=== PATIENT | male | born 1965 | race Caucasian/White ===

== ENCOUNTER 2018-02-28 11:59 | Emergency (ER) | payer OTHER ==
[2018-02-28] MEDS ORDERED: LET GEL TOPICAL 1 EA SYR TP ONE (12:21)
--- NOTE | 2018-02-28 14:15 | EDPHY ---
H & P Time Seen by Provider: 02/28/18 12:09 HPI/ROS: CHIEF COMPLAINT: Laceration right forearm History by patient HISTORY OF PRESENT ILLNESS: 52-year-old otherwise healthy man presents with laceration to his right forearm after he was cut by piece of sheet metal on his van while he was clearing something out from the bulk head. He denies other pain or injury. His last tetanus shot was 5 years ago. REVIEW OF SYSTEMS: As in HPI, and all other systems reviewed and are negative Smoking Status: Never smoked Physical Exam: General Appearance: Alert and no distress. Head: Normocephalic, atraumatic Eyes: Pupils equal and round no injection. Extraocular movements are intact. Musculoskeletal: Neck is supple and nontender. Extremities: Right dorsal, extensor surface of the forearm with 5 cm superficial laceration to fat on the dorsum, full range of motion of all fingers and wrist against resistance to flexion and extension at all joints distal to the laceration, radial pulse 2 +and equal the left, distal cap refill intact, distal sensation intact. Skin: No rashes or lesions except as described above. Constitutional: Initial Vital Signs Temperature (C) 36.7 C 02/28/18 12:08 Heart Rate 100 02/28/18 12:08 Respiratory Rate 18 02/28/18 12:08 Blood Pressure 166/107 H 02/28/18 12:08 O2 Sat (%) 100 02/28/18 12:08 O2 Delivery Mode Room Air Allergies/Adverse Reactions: No Known Allergies Allergy (Verified 02/28/18 12:17) Home Medications: Medication Instructions Recorded NK [No Known Home Meds] 02/28/18 MDM/Departure - [facility] Procedures: Procedure: Laceration repair. Verbal consent was obtained from the patient. The 5 cm laceration on the right dorsal forearm was anesthetized in the usual fashion with 1% buffered lidocaine with epinephrine. The wound was irrigated, draped and explored to its base with a gloved finger. Wound went to fat but no deeper. There were no deep structures involved. No tendon injury was identified. The wound was repaired with 12 x 5 Ethilon interrupted sutures without complication. The wound repair was uncomplicated. The procedure was performed by myself. Medications Given: Discontinued Medications Tetracaine/Epinephrine/Lidocaine (Let Gel Topical) 1 ea TP EDNOW ONE Stop: 02/28/18 12:22 Last Admin: 02/28/18 12:29 Dose: Not Given - Depart Disposition: Home, Routine, Self-Care Clinical Impression: Laceration Condition: Good Instructions: Care For Your Stitches (DC), Laceration (DC) Additional Instructions: You were seen by Dr. Emerita Eldridge today. Keep your dressing on for the next 24 hr. After that you may remove it and wash the wound regularly with soap and water, cover it with ointment such as Aquaphor and a bandage until the sutures come out. Do not submerge the wound such as in a swimming pool. Please have the sutures removed in 10-14 days. Watch for signs and symptoms of infection including but not limited to pus from the wound, increased pain or redness, unexplained fever. Return for any worsening or new concerns. Referrals: AARON REAGAN [Primary Care Provider] - As per Instructions
[2018-02-28 14:56] VITALS: BP 150/99
== END 2018-02-28 14:24 | disposition home or self-care (01) ==
LOC: CED 11:59
PROC: 0HQDXZZ Repair Right Lower Arm Skin, External Approach (ICD-10-PCS; principal; 2018-02-28)
DX: S51.811A Laceration without foreign body of right forearm, initial encounter (principal); W45.8XXA Other foreign body or object entering through skin, initial encounter